=== PATIENT | male | born 1945 | race Caucasian/White ===

== ENCOUNTER 2020-08-29 10:47 | Observation (INO) | payer MEDICARE ==
[2020-08-29] MEDS ORDERED: Iopamidol-370 76% 500 ML 1 ML ONE (11:17)
[2020-08-29 12:02] LABS: #Basophils 0.2 thou/uL (0.0-0.2); #Eosinphils 0.2 thou/uL (0.0-0.7); #Lymphocytes 1.6 thou/uL (1.20-3.40); #Monocytes 0.8 thou/uL (0.11-0.59); #Neutrophils 3.1 thou/uL (1.40-6.50); %Basophils 2.6 % (0.0-1.0); %Eosinophils 4.1 % (0.0-10.0); %Lymphocytes 27.7 % (21.0-51.0); %Monocytes 13.5 % (0.0-10.0); %Neutrophils 52.1 % (42.0-75.0); Mean Corpuscular Hemoglobin 31.3 pg (27.0-31.0); Mean Corpuscular Volume 94.9 fL (78.0-98.0); Mean Platelet Volume 9.6 fL (7.4-10.4); Platelet Count 204 thou/uL (130-400); RBC Distribution Width 16.5 % (11.5-14.5); Red Blood Cell (RBC) Count 3.82 mill/uL (4.70-6.10); White Blood Cell (WBC) Count 5.9 thou/uL (4.8-10.8)
[2020-08-29 12:59] LABS: ALT (SGPT) 19 U/L (8-55); AST (SGOT) 17 U/L (5-34); Albumin 3.3 g/dL (3.4-4.8); Alkaline Phosphatase 80 U/L (40-110); Anion Gap 14 mmol/L (10-20); BUN (Urea Nitrogen) 13 mg/dL (8.4-25.7); Bilirubin, Total 0.6 mg/dL (0.2-1.2); Calc. Creatinine Clearance 0 mL/min (70-130); Calcium 8.6 mg/dL (7.8-10.44); Carbon Dioxide 21 mmol/L (23-31); Chloride 108 mmol/L (98-107); Globulin 2.6 g/dL (2.4-3.5); Glucose 99 mg/dL (83-110); Potassium 4.3 mmol/L (3.5-5.1); Protein, Total 5.9 g/dL (5.8-8.1); Sodium 139 mmol/L (136-145)
[2020-08-29] MEDS ORDERED: Cepastat Lozenges 1 LOZ PO PRN (16:56)
[2020-08-29] MEDS ORDERED: Loratadine 10 MG TAB PO PRN (16:56)
[2020-08-29] MEDS ORDERED: Calcium Carbonate 500 MG ChewTAB PO PRN (16:56)
[2020-08-29] MEDS ORDERED: Senokot S 8.6-50 MG TAB PO PRN (16:56)
[2020-08-29] MEDS ORDERED: Zolpidem Tartrate 5 MG TAB PO PRN (16:56)
[2020-08-29] MEDS ORDERED: Ondansetron ODT 4 MG TAB PO PRN (16:56)
[2020-08-29] MEDS ORDERED: Bisacodyl 10 MG SUPP PR PRN (16:56)
[2020-08-29] MEDS ORDERED: GUAIFENESIN SF SOLN 200 MG/10 ML UDCUP PO PRN (16:56)
[2020-08-29] MEDS ORDERED: Ondansetron PF 4 MG/2 ML Vial IVP PRN (16:56)
[2020-08-29] MEDS ORDERED: Sodium Chloride 0.65% Nasal 44 ML BOT EA NARE PRN (16:56)
[2020-08-29] MEDS ORDERED: Acetaminophen 500 MG TAB PO PRN (16:56)
[2020-08-29] MEDS ORDERED: hydrALAZINE 20 MG/ML VIAL SLOW IVP PRN (16:56)
[2020-08-29] MEDS ORDERED: Loperamide HCl 2 MG CAP PO PRN (16:56)
[2020-08-29 17:30] LABS: Troponin I 0.032 ng/mL (< 0.028)
[2020-08-29] MEDS ORDERED: hydrALAZINE 20 MG/ML VIAL ONE (19:30)
[2020-08-29] MEDS ORDERED: Atorvastatin Calcium 40 MG TAB PO SCH (21:00)
[2020-08-29 23:54] VITALS: BMI 23.9
[2020-08-30 05:19] LABS: Cardiac Risk 2.9 (Less than 4.5)
[2020-08-30] MEDS ORDERED: Aspirin 81 mg Enteric Coated Tablet PO SCH (09:00)
[2020-08-30 12:14] VITALS: BP 172/85; TEMP 98.2
== END 2020-08-30 14:56 | disposition home or self-care (01) ==
LOC: ERS 10:47 → ERHOLD 13:13 → 2SE 23:00
PROVIDERS: ADMIT Internal Medicine; ATTEND Internal Medicine
DX: G45.9 Transient cerebral ischemic attack, unspecified (principal); I10 Essential (primary) hypertension; E78.5 Hyperlipidemia, unspecified; I25.10 Atherosclerotic heart disease of native coronary artery without angina pectoris; F41.9 Anxiety disorder, unspecified; F32.9 Major depressive disorder, single episode, unspecified; Z79.01 Long term (current) use of anticoagulants; Z79.82 Long term (current) use of aspirin; Z79.899 Other long term (current) drug therapy; Z86.73 Personal history of transient ischemic attack (TIA), and cerebral infarction without residual deficits; Z88.5 Allergy status to narcotic agent; Z88.8 Allergy status to other drugs, medicaments and biological substances; Z95.1 Presence of aortocoronary bypass graft; Z95.5 Presence of coronary angioplasty implant and graft
CPT/HCPCS: 70450; 70496; 70498; 70551; 71045; 80053; 80061; 82962; 84484 ×2; 85025; 93005; 95712; 95819; 95957; 96374; 99285; G0378; 36415; 36416; J0360; Q9967